=== PATIENT | female | born 1960 | race African-American/Black ===

== ENCOUNTER 2016-06-26 19:01 | Emergency (ER) | payer OTHER ==
[~2016-06-26] VITALS: Ht 162.6 cm; Wt 117.0 kg
[~2016-06-26 19:01] MED LIST: ALBUTEROL SULF8.5 GM INH; AMOXICILLIN500 MG PO; BENADRYL25 MG PO; CLINDAMYCIN HC150 MG PO; GUAIFENESIN DM118 M1 PO; IBUPROFEN600 MG ORAL; KEFLEX500 MG ORAL; NKM; PERIDEX 0.12% O16 OZ MT; PREDNISONE20 MG PO; QVAR 80MCG ORA1 PUFF INH; QVAR 80MCG ORA1 PUFF PO; RANITIDINE HCL150 MG PO; SEREVENT DISKU50 MCG IH; TRAMADOL HCL50 MG ORAL
[2016-06-26 19:26] VITALS: BP 122/79
[2016-06-26 20:33] LABS: APPEARANCE,URINE SLIGHTLY CLOUDY; KETONES,URINE NEGATIVE (NEGATIVE); LEUKOCYTE ESTERASE ,URINE 1+ (NEGATIVE); NITRITE,URINE NEGATIVE (NEGATIVE); PH,URINE 5 (4.5-8.0); PROTEIN,URINE NEGATIVE (NEGATIVE); UROBILINOGEN,URINE NORMAL MG/DL (0.0-1.0)
[2016-06-26 20:46] LABS: RBC,URINE 0-2 /HPF (0 - 2); SQUAMOUS EPITHELIAL CELL,UR MODERATE /LPF (NONE/OCC)
--- NOTE | 2016-06-26 21:17 | Emergency Room Report ---
History of Present Illness General Chief Complaint: Pain Source: Patient Present Illness HPI Patient complains of urinary symptoms for 3 days. Associated symptoms include increased frequency, urgency, painful urination, suprapubic pressure, suprapubic abdominal pain, and left flank pain. No provoking or relieving factors. States that she took a lot of water without improvement. States that she has recurrent kidney infections. Denies any current n/v/f/c/d, LE swelling, CP, SOB or headache. Allergies: Coded Allergies: Shrimp (Verified Allergy, Severe, Hives, 03/19/16) Tongue swelling PENICILLINS (Verified Allergy, Intermediate, 11/20/15) PINEAPPLE (Verified Allergy, Intermediate, Shortness of Breath, 01/16/12) SWELLING Patient History Past Medical History: see triage record Last Menstrual Period: 2001 Now: No Reviewed Nursing Documentation: PMH: Agreed, PSxH: Agreed Nursing Documentation-PMH Past Medical History: No History, Except For Hx Asthma: Yes Review of Systems All Other Systems: negative except mentioned in HPI Physical Exam Vital Signs Date Time Temp Pulse Resp B/P Pulse Ox O2 Delivery O2 Flow Rate FiO2 06/26/16 19:19 98.1 88 16 122/79 99 Room Air Sp02 EP Interpretation: reviewed, normal General Appearance: no apparent distress, alert, GCS 15, non-toxic Head: normocephalic, atraumatic Respiratory: chest non-tender, lungs clear, normal breath sounds, speaking full sentences Cardiovascular #1: regular rate, rhythm, no edema Gastrointestinal: soft, tenderness - suprapubic Rectal: deferred Genitourinary: no CVA tenderness Musculoskeletal: gait/station normal, normal range of motion Neurologic: alert, oriented x3, responsive, motor strength/tone normal, sensory intact, speech normal Psychiatric: judgement/insight normal, memory normal, mood/affect normal, no suicidal/homicidal ideation Skin: normal color, no rash, warm/dry, well hydrated Lymphatic: no adenopathy Medical Decision Making PA Attestation Dr. Butterfield is my supervising physician with whom patient management has been discussed with. Diagnostic Impression: Primary Impression: Acute hemorrhagic cystitis ER Course Pt. presents to the ED c/o UTI symptoms Ddx considered but are not limited to UTI, pyelonephritis, kidney stone, constipation, gastroenteritis, ovarian torsion, ovarian cyst Vital signs: are WNL, pt. is afebrile H&PE are most consistent with UTI ORDERS: UA, Urine Culture ED INTERVENTIONS: 1G Rocephin DISCHARGE: At this time pt. is stable for d/c to home. Will provide printed patient care instructions, and any necessary prescriptions. Care plan and follow up instructions have been discussed with the patient prior to discharge. Laboratory Tests Test 06/26/16 20:14 Urine Color Pale yellow Urine Appearance Slightly cloudy Urine pH 5 (4.5-8.0) Urine Specific Hilger 1.025 (1.005-1.035) Urine Protein Negative (NEGATIVE) Urine Glucose (UA) Negative (NEGATIVE) Urine Ketones Negative (NEGATIVE) Urine Occult Blood 1+ (NEGATIVE) H Urine Nitrite Negative (NEGATIVE) Urine Bilirubin Negative (NEGATIVE) Urine Urobilinogen Normal MG/DL (0.0-1.0) Urine Leukocyte Esterase 1+ (NEGATIVE) H Urine RBC 0-2 /HPF (0 - 2) Urine WBC 2-4 /HPF (0 - 2) Urine Squamous Epithelial Cells Moderate /LPF (NONE/OCC) H Urine Bacteria None /HPF (NONE) Last Vital Signs Date Time Temp Pulse Resp B/P Pulse Ox O2 Delivery O2 Flow Rate FiO2 06/26/16 21:34 98.1 88 16 122/79 99 Room Air Status: unchanged Disposition: HOME, SELF-CARE Condition: Stable Scripts Phenazopyridine Hcl* (PYRIDIUM*) 200 Mg Tablet 200 MG ORAL THREE TIMES A DAY, #9 TAB 0 Refills Prov: DARRIN POMPA P.A. 06/26/16 Cephalexin* (KEFLEX*) 500 Mg Capsule 500 MG ORAL EVERY 12 HOURS, #14 CAP 0 Refills Prov: DARRIN POMPA P.A. 06/26/16 Referrals: [facility] ([facility]P) Patient Instructions: Urinary Tract Infection Additional Instructions: Take medication as directed. Patient informed that Azo (Pyridium) will make your urine turn orange and to use for urinary pain. Drink plenty of cranberry juice and have some pelvic rest. Return to clinic or PCP sooner if symptoms worsen or do not improve. Go to ER if you experience any adverse reactions to medication or if you start developing back pain or fever. DARRIN POMPA Jun 26, 2016 21:17
[2016-06-26] MEDS ORDERED: PHENAZOPYRIDIN200 MG ORAL (21:20)
[2016-06-26] MEDS ORDERED: CEPHALEXIN500 MG ORAL (21:20)
[2016-06-26] MEDS ORDERED: Lidocaine 1% MPF 10mg/ml 5ml ONE (21:24)
[2016-06-26 21:34] VITALS: BP 120/75
== END 2016-06-26 21:35 | disposition home or self-care (01) ==
LOC: EMR 19:49
DX: N30.00 Acute cystitis without hematuria (principal); Z91.013 Allergy to seafood; Z88.0 Allergy status to penicillin; Z91.018 Allergy to other foods; J45.909 Unspecified asthma, uncomplicated
CPT/HCPCS: 81003; 96372; 99284; J0696

== ENCOUNTER 2017-01-10 15:34 | Emergency (ER) | payer OTHER ==
[~2017-01-10] VITALS: Ht 162.6 cm; Wt 117.0 kg
[~2017-01-10 15:34] MED LIST changes: +CEPHALEXIN500 MG ORAL; +PHENAZOPYRIDIN200 MG ORAL
--- NOTE | 2017-01-10 16:57 | Diagnostic Imaging Report ---
Indication: Headache Technique: Contiguous 5 mm thick transaxial imaging of the head obtained in a Siemens Sensation [address] scanner. Soft tissue and bone windows generated. Total Dose length Product (DLP): [address] Dose Index Volume (CTDIvol): 70.38, 0.15 mGy Comparison: 06/20/12 Findings: The size and configuration of the cortical sulci, basal cisterns, and ventricles are within normal limits for age. There is no mass effect, midline shift, or edema identified. There is no evidence of acute hemorrhage or abnormal intra-axial or extra-axial fluid collections. The bones and soft tissues are unremarkable. Impression: No mass effect, edema or acute bleed. The CT scanner at [facility] is accredited by the [employer] and the scans are performed using dose optimization techniques as appropriate to a performed exam including Automatic Exposure control.
[2017-01-10] MEDS ORDERED: ZOFRAN4 M3 ORAL (17:04)
[2017-01-10] MEDS ORDERED: TYLENOL EXTRA500 MG ORAL (17:04)
[2017-01-10] MEDS ORDERED: ROBAXIN-750750 MG PO (17:04)
[2017-01-10 17:10] VITALS: BP 140/86
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
== END 2017-01-10 19:59 | disposition home or self-care (01) ==
LOC: EMR 16:18
DX: S06.0X9A Concussion with loss of consciousness of unspecified duration, initial encounter (principal); S39.012A Strain of muscle, fascia and tendon of lower back, initial encounter; V09.9XXA Pedestrian injured in unspecified transport accident, initial encounter; Y93.01 Activity, walking, marching and hiking; Y92.410 Unspecified street and highway as the place of occurrence of the external cause; J45.909 Unspecified asthma, uncomplicated; Z91.040 Latex allergy status; Z91.013 Allergy to seafood; Z88.0 Allergy status to penicillin; Z91.018 Allergy to other foods
CPT/HCPCS: 70450; 99284

== ENCOUNTER 2020-04-25 09:18 | Emergency (ER) | payer OTHER ==
[~2020-04-25] VITALS: Ht 162.6 cm; Wt 120.2 kg
[~2020-04-25 09:18] MED LIST changes: +ROBAXIN-750750 MG PO; +TYLENOL EXTRA500 MG ORAL; +ZOFRAN4 M3 ORAL
[2020-04-25] MEDS ORDERED: Aspirin Baby 81mg ORAL ONE (10:00)
--- NOTE | 2020-04-25 10:00 | NUR ---
ED Nurse Note:pt. came from home with c/o chest pain and headache for 1 week, pt. is ambulatory, VSS, ekg done, placed on campus monitor
--- NOTE | 2020-04-25 10:31 | NUR ---
ED Nurse Note:blood sent to labs
[2020-04-25 10:35] VITALS: BP 130/63
[2020-04-25 11:00] LABS: BASOPHILS % (AUTO) 0.7 % (0.0-2.0); EOSINOPHILS % (AUTO) 0.6 % (0.0-3.0); HEMATOCRIT 37.7 % (37.0-47.0); HEMOGLOBIN 12.2 G/DL (12.0-16.0); LYMPHOCYTES % (AUTO) 34.4 % (20.0-45.0); MEAN CORPUSCULAR VOLUME 92 FL (80-99); MONOCYTES % (AUTO) 6.3 % (1.0-10.0); NEUTROPHILS % (AUTO) 58.1 % (45.0-75.0); PLATELET COUNT 219 K/UL (150-450); RED BLOOD COUNT 4.08 M/UL (4.20-5.40); RED CELL DISTRIBUTION WIDTH 12.5 % (11.6-14.8); WHITE BLOOD COUNT 5.9 K/UL (4.8-10.8)
[2020-04-25 11:02] LABS: ANION GAP 7 mmol/L (5-15); BLOOD UREA NITROGEN 15 mg/dL (7-18); CALCIUM 9.2 MG/DL (8.5-10.1); CARBON DIOXIDE 28 MMOL/L (21-32); CHLORIDE 107 MMOL/L (98-107); CREATININE 0.8 MG/DL (0.55-1.30); POTASSIUM 3.9 MMOL/L (3.5-5.1); SODIUM 142 MMOL/L (136-145)
[2020-04-25 11:14] LABS: ALANINE AMINOTRANSFERASE 18 U/L (12-78); ALBUMIN 3.4 G/DL (3.4-5.0); ALBUMIN/GLOBULIN RATIO 0.9 (1.0-2.7); ASPARTATE AMINO TRANSFERASE 18 U/L (15-37); BILIRUBIN,TOTAL 0.4 MG/DL (0.2-1.0)
--- NOTE | 2020-04-25 11:21 | Emergency Room Report ---
History of Present Illness General Chief Complaint: Chest Pain Source: Patient Present Illness HPI Patient has developed acute onset of chest pain on the last few days. Patient states that she has been under a lot of stress. She states that the pain is intermittent lasting only for seconds especially when she is stressed. She denies any cough nausea vomiting diarrhea chills. Denies any shortness of breath. Denies any runny nose or loss of smell. Denies any leg pain leg swelling. Patient states that she is not on hormone supplements and has never had a history of pulmonary embolism or DVT. Symptoms noted to be mild. Patient denies any suicidal homicidal ideation. States that she does not have difficulty sleeping. No other modifying factors. No other associated signs and symptoms. No other complaints were noted. Allergies: Coded Allergies: LATEX (Verified Allergy, Severe, Hives, 01/10/17) Shrimp (Verified Allergy, Severe, Hives, 03/19/16) Tongue swelling PENICILLINS (Verified Allergy, Intermediate, 11/20/15) PINEAPPLE (Verified Allergy, Intermediate, Shortness of Breath, 01/16/12) SWELLING COVID-19 Screening Contact w/high risk pt: No Recent Travel to affected area: No Experienced COVID-19 symptoms?: No COVID-19 Testing performed CHILD PSYCHOLOGIST: No Patient History Past Medical History: none Past Surgical History: none Pertinent Family History: none Social History: Denies: smoking, alcohol use, drug use Now: No Reviewed Nursing Documentation: PMH: Agreed; PSxH: Agreed Nursing Documentation-PMH Past Medical History: No History, Except For Hx Asthma: Yes Review of Systems All Other Systems: negative except mentioned in HPI Physical Exam Vital Signs Date Time Temp Pulse Resp B/P (MAP) Pulse Ox O2 Delivery O2 Flow Rate FiO2 04/25/20 09:28 98.2 79 16 130/63 (85) 99 Room Air Sp02 EP Interpretation: reviewed, normal General Appearance: normal inspection, well appearing, no apparent distress, alert Head: atraumatic Eyes: bilateral eye normal inspection ENT: normal ENT inspection, hearing grossly normal, normal voice Neck: normal inspection, full range of motion, supple, no bony tend Respiratory: normal inspection, lungs clear, normal breath sounds, no respiratory distress, no retraction, no wheezing Cardiovascular #1: regular rate, rhythm, no edema Gastrointestinal: normal inspection, normal bowel sounds, non tender, soft, no guarding, no hernia Genitourinary: no CVA tenderness Musculoskeletal: normal inspection, back normal, normal range of motion Neurologic: alert, responsive, speech normal, normal inspection Psychiatric: normal inspection, judgement/insight normal, anxious Skin: no rash Medical Decision Making Diagnostic Impression: Primary Impression: Chest pain ER Course Patient presented to the emergency department today complaining of chest pain. Differential diagnoses include acute coronary syndrome, pulmonary embolism, pneumothorax, chest wall pain, pleurisy, pericarditis, acute anxiety reaction just to name a few. Given the severity of the patient's presentation I felt this is a highly complex patient. This patient required extensive workup. CBC, chemistry, EKG, chest x-ray, cardiac enzymes, liver profile were all obtained. 12-lead EKG performed for nontraumatic chest pain. RS documentation: EKG was performed. Please refer to below for interpretation. Patient's work-up was negative. Patient was observed in the emergency department with no further incidences of chest pain. Given patient had a negative work-up. Chest pain is really atypical patient safe discharge recommend outpatient follow-up outpatient stress test as needed. Patient is advised to follow up with primary doctor in 2-3 days and return the emergency room for any worsening symptoms and as needed. Labs Test 04/25/20 10:30 White Blood Count 5.9 K/UL (4.8-10.8) Red Blood Count 4.08 M/UL (4.20-5.40) Hemoglobin 12.2 G/DL (12.0-16.0) Hematocrit 37.7 % (37.0-47.0) Mean Corpuscular Volume 92 FL (80-99) Mean Corpuscular Hemoglobin 29.8 PG (27.0-31.0) Mean Corpuscular Hemoglobin Concent 32.3 G/DL (32.0-36.0) Red Cell Distribution Width 12.5 % (11.6-14.8) Platelet Count 219 K/UL (150-450) Mean Platelet Volume 7.7 FL (6.5-10.1) Neutrophils (%) (Auto) 58.1 % (45.0-75.0) Lymphocytes (%) (Auto) 34.4 % (20.0-45.0) Monocytes (%) (Auto) 6.3 % (1.0-10.0) Eosinophils (%) (Auto) 0.6 % (0.0-3.0) Basophils (%) (Auto) 0.7 % (0.0-2.0) D-Dimer 0.38 mg/L FEU (0.00-0.49) Sodium Level 142 MMOL/L (136-145) Potassium Level 3.9 MMOL/L (3.5-5.1) Chloride Level 107 MMOL/L (98-107) Carbon Dioxide Level 28 MMOL/L (21-32) Anion Gap 7 mmol/L (5-15) Blood Urea Nitrogen 15 mg/dL (7-18) Creatinine 0.8 MG/DL (0.55-1.30) Estimat Glomerular Filtration Rate > 60 mL/min (>60) Glucose Level 100 MG/DL (74-106) Calcium Level 9.2 MG/DL (8.5-10.1) Total Bilirubin 0.4 MG/DL (0.2-1.0) Aspartate Amino Transf (AST/SGOT) 18 U/L (15-37) Alanine Aminotransferase (ALT/SGPT) 18 U/L (12-78) Troponin I 0.000 ng/mL (0.000-0.056) Pro-B-Type Natriuretic Peptide 43 pg/mL (0-125) Total Protein 7.2 G/DL (6.4-8.2) Albumin 3.4 G/DL (3.4-5.0) Globulin 3.8 g/dL Albumin/Globulin Ratio 0.9 (1.0-2.7) EKG Diagnostic Results Troponin ordered: Yes Rate: normal Rhythm: NSR ST Segments: no acute changes Rhythm Strip Diag. Results EP Interpretation: yes Rate: 74 Rhythm: NSR, no PVC's, no ectopy Chest X-Ray Diagnostic Results Chest X-Ray Diagnostic Results : Chest X-Ray Ordered: Yes # of Views/Limited/Complete: 1 View Indication: Chest Pain EP Interpretation: Yes Interpretation: no consolidation, no effusion, no pneumothorax, no acute cardiopulmonary disease Impression: No acute disease Last Vital Signs Date Time Temp Pulse Resp B/P (MAP) Pulse Ox O2 Delivery O2 Flow Rate FiO2 04/25/20 10:35 79 16 Room Air 04/25/20 10:35 98.2 130/63 99 Status: improved Disposition: HOME, SELF-CARE Condition: Stable [facility]errals: [facility] (PCP) Michael Palencia MD Apr 25, 2020 11:21
[2020-04-25 11:32] VITALS: BP 103/63
--- NOTE | 2020-04-25 11:35 | NUR ---
[facility] DISCHARGED HOME WITH INSTRUCTION TO FOLLOW UP WITH PMD
[2020-04-25 11:38] LABS: ALKALINE PHOSPHATASE 62 U/L (46-116)
--- NOTE | 2020-04-25 13:49 | Diagnostic Imaging Report ---
Indication: Cough Technique: One view of the chest Comparison: 06/20/2012 Findings: Lungs and pleural spaces are clear. Heart size is normal. Better inspiration currently. No other significant interim change Impression: No acute process
== END 2020-04-25 11:36 | disposition home or self-care (01) ==
LOC: EMR 10:15
DX: R07.9 Chest pain, unspecified (principal); J45.909 Unspecified asthma, uncomplicated; Z88.0 Allergy status to penicillin; Z91.040 Latex allergy status; Z91.013 Allergy to seafood; Z91.018 Allergy to other foods
CPT/HCPCS: 36415; 71045; 80053; 83880; 84484; 85025; 85379; 93005; Z7502; 99284